=== PATIENT | male | born 1960 | race Caucasian/White ===

== ENCOUNTER → 2022-04-09 | Outpatient (CLI) | payer OTHER ==
[~2022-04-09] MED LIST: HYDACE5 PO
[2022-04-09 13:40] LABS: Creatinine, Urine Random 74.8 mg/dL (27.00-270.00)
[2022-04-09 13:43] LABS: Microalb/Creat Ratio UR, Rand 82.219 mg/g (0.000-30.000); Microalbumin, Random Urine 61.5 mg/L (0.000-20.000)
== END | disposition home or self-care (01) ==
LOC: LAB SHORT 09:10
PROVIDERS: Family Medicine
DX: E11.42 Type 2 diabetes mellitus with diabetic polyneuropathy (principal)
CPT/HCPCS: 82043; 82570

== ENCOUNTER 2022-05-31 06:09 | Inpatient (IN) | payer OTHER ==
[~2022-05-31] VITALS: Ht 180.3 cm; Wt 101.5 kg
[~2022-05-31 06:09] MED LIST changes: +METF500 PO; +METO50ER PO
--- NOTE | 2022-05-31 07:16 | NUR ---
History, Chart, Medications and Allergies reviewed before start of procedure. Patient confirms NPO status and agrees with scheduled surgery. KNEE HIGH JUSTIN HOES W/PAS TO CALF BILAT APPLIED. NOZIN x3 AMPULES TO NARES PER DR LEYVA ORDER. SCRATCHES TO R THIGH NOTED PT STATES THEY ARE FROM HIM SCRATCHING WITH HIS FINGERNAILS DR LEYVA NOTIFIED AND WILL ASSESS AT BEDSIDE WHEN SHE ARRIVES.
--- NOTE | 2022-05-31 08:25 | NUR ---
05/31/22 0825 Raul Sloan SCRATCHES ON SURGICAL LEG NOTED AND AWARE AND EXAMINED PRIOR TO PATIENT COMING BACK TO OR.
--- NOTE | 2022-05-31 16:24 | NUR ---
SHIFT SUMMARY PT A&OX4, VSS/2L TO KEEP SATS >92%, VALERIANO PO, VOIDING WELL, PAIN MANAGED FOR PRICE WITH TYLENOL. PHYSICAL THERAPY EVAL'D, AMB 1 MIN ASSIST W/FWW & GB TO HALLWAY, TO BRP, UP TO CHAIR WITH BLE ELEVATED AND POLAR AURELIO ON. S/P R CARMINA, DRESSING CDI. WILL REPORT TO ONCOMING NOC RN.
--- NOTE | 2022-06-01 05:30 | NUR ---
SUMMARY PT HAS BEEN PAINFUL THROUGHOUT THE SHIFT. PT PAIN IS LOCATED LEFT EYE AREA AND GENERAL HEADACHE. PT REPORTS SIGNIFICANT LIGHT SENSITIVITY. PT NEURO'S INTACT, NO TREMORS NOTED OR NOTED DEFICITS. PT REPORTS RIGHT HIP IS PAIN FREE. PT HAS BEEN GIVEN DILAUADID WITH REDUCTION IN PAIN. PO MEDS ARE NOT PROVIDING RELIEF. PT REPORTED THAT OXYCODONE SOMETIMES GIVES HIM HEADACHES. DR YOU CONTACTED AND HE ORDERED NORCO. PT HAS HAD EPISODES OF NAUSEA AND WAS TX PER EMAR WITH RELIEF. PT DENIES HX OF MIGRAINES OR ISSUES WITH ETOH WITHDRAWLS. PT CURRENTLY RESTING. CALL LIGHT IN REACH.
[2022-06-01 11:03] LABS: BASOPHILS ABSOLUTE AUTO 0.02 K/mm3 (0.00-0.23); BASOPHILS PERCENT AUTO 0 % (0-2); EOSINOPHILS ABSOLUTE AUTO 0.01 K/mm3 (0.00-0.68); EOSINOPHILS PERCENT AUTO 0 % (0-6); Hematocrit 38.9 % (37.0-53.0); Hemoglobin 13.1 g/dL (13.5-17.5); IMMATURE GRAN ABSOLUTE AUTO 0.08 K/mm3 (0.00-0.10); IMMATURE GRAN PERCENT AUTO 1 % (0-1); LYMPHOCYTES PERCENT AUTO 6 % (21-46); MONOCYTES ABSOLUTE AUTO 0.94 K/mm3 (0.16-1.47); MONOCYTES PERCENT AUTO 6 % (4-13); Mean Corpuscular HGB Conc 33.7 g/dL (31.5-36.5); Mean Corpuscular Volume 89 fL (80-100); NEUTROPHILS ABSOLUTE AUTO 12.68 K/mm3 (1.96-9.15); NEUTROPHILS PERCENT AUTO 87 % (41-73); Platelet Count 220 K/mm3 (150-400); RDW Coefficient Variation 12.9 % (11.7-14.2); RDW Standard Deviation 42.5 fL (35.1-46.3); Red Blood Cell Count 4.37 M/mm3 (4.30-5.90); White Blood Cell Count 14.63 K/mm3 (4.00-11.30)
[2022-06-01 11:47] LABS: Magnesium, Blood 2.2 mg/dL (1.6-2.4)
[2022-06-01 11:48] LABS: Bun/Creatinine Ratio 18.8 (12.0-20.0); Calcium, Blood 8.7 mg/dL (8.5-10.1); Creatinine, Blood 1.28 mg/dL (0.60-1.20); Potassium, Blood 3.9 mmol/L (3.5-5.5)
[2022-06-01 14:07] LABS: U Amphetamine Screen DETECTED; U Barbituate Screen Not Detected; U Benzodiazapine Screen Not Detected; U Buprenorphine Screen Not Detected; U Cannabinoids Screen Not Detected; U Cocaine Screen Not Detected; U Methadone Screen Not Detected; U Methamphetamine Screen DETECTED; U Opiates Screen DETECTED; U Oxycodone Screen DETECTED; U Phencyclidine Screen Not Detected; U Propoxyphene Screen Not Detected
--- NOTE | 2022-06-01 19:26 | NUR ---
SHIFT SUMMARY POD1 R HIP, A/OX4, VSS, TOLERATING PO, HIP PAIN MANAGED. PT C/O DIPLOPIA AND EYE PAIN T/O THE SHIFT, HOSPITALIST CONSULT OBTAINED AND EVALUATED PT. L EYE IS RED/BLOODSHOT, PT VERY UNSTEADY ON HIS FEET WHEN HE ATTEMPTED TO AMBULATE, PT MADE IT FROM ONE SIDE OF HIS BED TO THE OTHER AND HAD EMESIS WHEN HE WAS DONE. EYE PATCH PROVIDED FOR COMFORT AND PT REPORTS SOME RELIEF WITH IT IN PLACE. NO OTHER EVENTS THIS SHIFT, CALL LIGHT IN REACH, REPORT GIVEN TO NOC RN.
--- NOTE | 2022-06-02 05:14 | NUR ---
POD2 FOR A RIGHT CARMINA. DRESSING REMAINS C/D/I. CIRCULATION AND SENSATION REMAINS INTACT. VSS. TELE REPROTS THE PATIENT IS IN SINUS TACH AT 103 WITH FREQUENT PVS'S AND HAS REGULAR RUNS OF TRIGEMINY. LAST EKG ON 05/20/22 REPORTS THE PATIENT HAS OCCASIONAL PVC'S. THE PATIENT HAS REMAINED ASYMPTOMATIC T/O THE NIGHT AND REPORTS THAT HE KNOWS HE HAS A HEART CONDITION BUT DOES NOT KNOW WHAT IT IS CALLED, NO OUTSTANDING HX NOTED. MEDICATED FOR PAIN WITH NORCO AND DILAUDID, REPORTING THE MOST OF HIS PAIN IS IN HIS HEAD DUE TO HIS EYES. THE PATIENT HAS SLEPT MOST OF THE NIGHT. MINIMAL PO INTAKE AND SENSITIVITY TO LIGHT NOTED. PO VOIDING INTO URINAL W/O DIFFICULTY. WHEN ASSESSED THE PT CAN TRACK WITH BOTH EYES, AN OCCASIONAL DROOP OF THE LEFT EYELID IS NOTED AND THE PATIENT REPORTS DOUBLE VISION. PLAN FOR PT TO FOLLOW UP WITH OPTHOMOLOGY OUTPATIENT AND WORK WITH PHYSICAL THERAPY T/O THE REST OF HIS STAY. THE PATIENT IS CURRENTLY SLEEPING, IN NO DISTRESS, CALL LIGHT IN REACH
[2022-06-02] MEDS ORDERED: SULTRIDS PO (14:32)
--- NOTE | 2022-06-02 15:45 | NUR ---
DISCHARGE SUMMARY PT A&OX4, VSS/RA, VALERIANO PO-LOW PO INTAKE, VOIDING WELL, AMB SBA FWW/GB WITH EYE PATCH IN PLACE, PAIN MANAGED / FOR HIP, REP STILL HAS A HEADACHE, IV DC'D. DC INS PROVIDED. PT WAS NOT INTERESTED IN DC INS. I DID REVIEW DC INS WITH SISTER WHEN SHE PICKED UP PT. SISTER KARON REP SHE PICKED UP MEDS AT [facility] AND HAD A FWW FOR PT. KARON SAID SHE WILL BE TAKING PT TO HIS FIRST PT APPT TOMORROW AT 1300. PT LEFT FLOOR VIA WC WITH [employer] HELPER AND RN, TO GO HOME WITH SISTER, WITH ALL PERSONAL POSSESSIONS INCLUDING POLAR AURELIO AND DC INS.
== END 2022-06-02 15:45 | disposition home health service (06) | DRG 470 ==
LOC: ORSCMMR 06:09 → ORD 07:30 → ORSCMMR 07:30 → SURS 11:11 → ORSCMMR 12:33 → SURS 12:34
PROVIDERS: Nurse Practitioner Acute Care; ADMIT Orthopaedic Surgery
PROC: 0SR904A Replacement of Right Hip Joint with Ceramic on Polyethylene Synthetic Substitute, Uncemented, Open Approach (ICD-10-PCS; principal; 2022-05-31 07:30)
DX: M16.11 Unilateral primary osteoarthritis, right hip (principal); H18.892 Other specified disorders of cornea, left eye; H49.22 Sixth [abducent] nerve palsy, left eye; F15.10 Other stimulant abuse, uncomplicated; E11.9 Type 2 diabetes mellitus without complications; I10 Essential (primary) hypertension; M54.9 Dorsalgia, unspecified; I48.91 Unspecified atrial fibrillation; Z79.84 Long term (current) use of oral hypoglycemic drugs; Z79.899 Other long term (current) drug therapy
CPT/HCPCS: 36415; 70450; 70551; 72170; 80048; 82947; 83735; 85025; 97110; 97116; 97162; 97530; A9270; C1713; C1776; J0171; J0690; J0735; J1100; J1170; J1815; J1885; J2250; J2370; J2405; J2704; J2765; J2795; J3010; J7120